=== PATIENT | female | born 1970 | race Caucasian/White ===

== ENCOUNTER 2017-05-06 17:05 | Emergency (ER) | payer OTHER ==
[2017-05-06 17:42] VITALS: BP 133/83
--- NOTE | 2017-05-06 17:52 | UC ---
Viola Izquierdo Emily, scribed for Wade Santizo MD on 05/06/17 at 1750 . Dental HPI - HPI Summary HPI Summary: This patient is a 46 year old F presenting to urgent care accompanied by family with a chief complaint of R lower tooth pain that began 1 week ago. Pt reports having the tooth pulled and being prescribed amoxicillin on 05/03/2017. The patient rates the pain 8/10 in severity. Symptoms aggravated by nothing. Symptoms alleviated by nothing. Patient reports swelling on lower jaw. - History of Current Complaint Stated Complaint: INFECTED TOOTH Time Seen by Provider: 05/06/17 17:32 Hx Obtained From: Patient Hx Last Menstrual Period: IUD Onset/Duration: Sudden Onset, Lasting Days, Still Present Severity: Severe Pain Intensity: 8 Pain Scale Used: 0-10 Numeric Aggravating Factor(s): Nothing Alleviating Factor(s): Nothing - Allergies/Home Medications Allergies/Adverse Reactions: Allergies Allergy/AdvReac Type Severity Reaction Status Date / Time No Known Allergies Allergy Verified 05/06/17 17:37 Home Medications: Home Medications Amoxicillin PO (*) [Amoxicillin 500 MG CAP*] 500 mg PO Q8H 05/06/17 [History Confirmed 05/06/17] Ibuprofen TAB* [Advil TAB*] 400 mg PO ONCE PRN 05/06/17 [History Confirmed 05/06] PMH/Surg Hx/FS Hx/Imm Hx Previously Healthy: No Cardiovascular History: Hypertension Respiratory History: Asthma Psychological History: Bipolar Disorder - Surgical History Surgical History: Yes Surgery Procedure, Year, and Place: 1978 & 2008 tonsillectomy x2. 1984 RT shoulder surgery. 03/2013 & 04/2014 LEFT CARPAL TUNNEL [facility]. 08/2014 LEFT SHOULDER [facility]. had small skin cancer removed. Ulnar nerve 12/2014 - Family History Known Family History: Positive: Other - DVT - Social History Occupation: Unemployed Lives: Alone Alcohol Use: None Alcohol Amount: NONE SINCE 2012 Substance Use Type: None Smoking Status (MU): Former Smoker Type: eCigarettes Amount Used/How Often: 10 cigarettes/day Have You Smoked in the Last Year: - e cigarettes When Did the Patient Quit Smoking/Using Tobacco: quit start of 2016 Household Exposure Type: Cigarettes Review of Systems ENT: Dental Pain Musculoskeletal: Edema All Other Systems Reviewed And Are Negative: Yes Physical Exam - Summary Physical Exam Summary: General: well-appearing, no pain distress Skin: warm, color reflects adequate perfusion, dry Head: normal Eyes: EOMI, EVI ENT: Open socket right, lower, rear jaw. Oral pharynx is open. Voice is normal. Neck: supple, nontender Respiratory: CTA, breath sounds present Cardiovascular: RRR Abdomen: soft, nontender Bowel: present Musculoskeletal: normal, strength/ROM intact, Swelling on R side of face Neurological: normal, sensory/motor intact, A&O x3 Psychological: affect/mood appropriate Triage Information Reviewed: Yes Vital Signs: Initial Vital Signs Temp 96.8 F 05/06/17 17:33 Pulse 82 05/06/17 17:33 Resp 16 05/06/17 17:33 BP 133/83 05/06/17 17:33 Pulse Ox 99 05/06/17 17:33 Vital Signs Reviewed: Yes Dental Complaint Course/Dx - Course Course Of Treatment: BP noted and advised to follow up with PCP. Medications reviewed. Allergies reviewed - Differential Dx/Diagnosis Provider Diagnoses: dental abscess. HTN Discharge - Discharge Plan Condition: Stable Disposition: HOME Prescriptions: Clindamycin Cap(NF) [Clindamycin Cap 300 mg Cap(NF)] 300 mg PO Q6H #40 cap Fluconazole 150 MG (NF) [Diflucan 150 mg (NF)] 150 mg PO ONCE #1 tab HYDROcodone/ACETAMIN 5-325 MG* [Burns 5-325 TAB*] 1 tab PO Q4H PRN #20 tab MDD 6 PRN Reason: Pain Patient Education Materials: Dental Abscess (ED) Referrals: Lorrie Knutson MD [Primary Care Provider] - Additional Instructions: FOLLOW UP WITH YOUR DENTIST. GET RECHECKED FOR ANY WORSENING OF YOUR CONDITION OR QUESTIONS OR CONCERNS. YOUR BLOOD PRESSURE WAS ELEVATED DURING TODAY'S VISIT; FOLLOW UP WITH YOUR PCP WITHIN ONE WEEK FOR FURTHER EVALUATION. The documentation as recorded by the Viola wilder Emily accurately reflects the service I personally performed and the decisions made by me, Wade Santizo MD.
== END 2017-05-06 18:23 | disposition home or self-care (01) ==
LOC: UCEAST 17:05
DX: K04.7 Periapical abscess without sinus (principal); R60.9 Edema, unspecified; I10 Essential (primary) hypertension; J45.909 Unspecified asthma, uncomplicated; F31.9 Bipolar disorder, unspecified; Z87.891 Personal history of nicotine dependence
CPT/HCPCS: 99212; G0463

== ENCOUNTER 2017-08-21 12:41 | Emergency (ER) | payer OTHER ==
--- NOTE | 2017-08-21 13:55 | RAD ---
INDICATION: Left lower extremity pain. COMPARISON: September 21, 2014. TECHNIQUE: Multiple real-time, color flow and Doppler tracings of the left lower extremity were obtained. FINDINGS: The common femoral, femoral, profunda femoral and popliteal veins all demonstrate normal compressibility, augmentation with compression and phasic response with respiration. The posterior tibial and peroneal veins demonstrate normal compressibility and augmentation with compression. IMPRESSION: NO EVIDENCE FOR DEEP VENOUS THROMBOSIS.
[2017-08-21 14:37] LABS: ABS Basophils 0 10^3/ul (0-0.2); ABS Eosinophils 0 10^3/ul (0-0.6); ABS Lymphocytes 1.5 10^3/ul (1.0-4.8); ABS Monocytes 0.4 10^3/ul (0-0.8); ABS Neutrophils 3.1 10^3/ul (1.5-7.7); ABS Nucleated RBC 0 10^3/ul; Eosinophil % 0.9 % (0-6); Hematocrit 38 % (35-47); Hemoglobin 13.1 g/dl (12.0-16.0); Mean Corpuscular HGB Conc 34 g/dl (31-36); Mean Corpuscular Hemoglobin 31 pg (27-31); Mean Corpuscular Volume 92 fL (80-97); Mean Platelet Volume 6.9 um3 (7.4-10.4); Nucleated Red Blood Cells % 0.1; Platelet Count 263 10^3/ul (150-450); Red Blood Count 4.18 10^6/ul (4.00-5.40); Red Cell Distribution Width 14 % (10.5-15)
[2017-08-21 14:54] LABS: EGFR Non-African American 89.3 (>60)
[2017-08-21 14:59] LABS: INR 0.9 (0.77-1.02)
--- NOTE | 2017-08-21 15:29 | ED ---
Lower Extremity - HPI Summary HPI Summary: 46-year-old female presents with left thigh/posterior knee pain for the past month. She denies any injury. She states that it radiates to the front of her knee. She says that she has had increased swelling to the area of pain. No numbness or tingling. She has chronic back pain and that is unchanged. The knee is not giving out. No weakness. She states that she has pain at rest and with ambulation of the same. She has not tried any heat or ice. She cannot take ibuprofen. She doesn't have a personal history of DVTs but her sister has had 4 dvts. She denies any chest pain or shortness breath. She denies any recent surgeries or travel. - History of Current Complaint Chief Complaint: EDExtremityLower Stated Complaint: LT LEG PAIN & SWELLING Time Seen by Provider: 08/21/17 14:40 Hx Last Menstrual Period: IUD Pain Intensity: 7 - Allergies/Home Medications Allergies/Adverse Reactions: Allergies Allergy/AdvReac Type Severity Reaction Status Date / Time No Known Allergies Allergy Verified 07/26/17 14:30 Home Medications: Home Medications Gabapentin CAP(*) [Neurontin 300 CAP(*)] 300 mg PO QPM 08/21/17 [History Confirmed 08/21/17] LevoCETirizine TAB (NF) [Xyzal TAB (NF)] 5 mg PO DAILY 08/21/17 [History Confirmed 08/21/17] Mometasone NASAL (NF) [Nasonex (NF)] 1 spray NASAL DAILY PRN 08/21/17 [History Confirmed 08/21/17] Mometasone/Formoter 200/5 MDI* [Dulera 200/5 MDI*] 2 puff INH BID 08/21/17 [ History Confirmed 08/21/17] Omeprazole CAP* [Prilosec CAP* 20 MG] 20 mg PO DAILY 08/21/17 [History Confirmed 08/21/17] PMH/Surg Hx/FS Hx/Imm Hx Endocrine/Hematology History: Denies: Hx Diabetes, Hx Thyroid Disease Cardiovascular History: Reports: Hx Hypertension Denies: Hx Pacemaker/ICD Respiratory History: Reports: Hx Asthma, Other Respiratory Problems/Disorders - CURRENTLY HAS UPPER RESPIRATORY INFECTION Denies: Hx Chronic Obstructive Pulmonary Disease (COPD) GI History: Reports: Hx Gastroesophageal Reflux Disease - ON DAILY MEDS Denies: Hx Ulcer History: Denies: Hx Dialysis, Hx Renal Disease Musculoskeletal History: Reports: Hx Arthritis - NECK, SHOULDERS, LOW BACK , ANKLES, HIPS, Hx Bursitis, Hx Tendonitis - Hx OF, Other Musculoskeletal History - carpal tunnel Sensory History: Reports: Hx Contacts or Glasses Denies: Hx Hearing Aid Opthamlomology History: Reports: Hx Contacts or Glasses Neurological History: Reports: Hx Headaches, Other Neuro Impairments/Disorders - FIBROMYALGIA Denies: Hx Migraine, Hx Nerve Disease, Hx Seizures Psychiatric History: Reports: Hx Anxiety - ON MEDS DAILY, Hx Depression, Hx Bipolar Disorder Denies: Hx Panic Disorder - Surgical History Surgery Procedure, Year, and Place: 1978 & 2008 tonsillectomy x2. 1983 RT shoulder surgery. 03/2013 & 04/2014 LEFT CARPAL TUNNEL [facility]. 08/2014 LEFT SHOULDER [facility]. had small skin cancer removed. Ulnar nerve 12/2014 Hx Anesthesia Reactions: No Infectious Disease History: No Infectious Disease History: Denies: Hx Hepatitis, Hx Human Immunodeficiency Virus (HIV), History Other Infectious Disease, Traveled Outside the in Last 30 Days - Family History Known Family History: Positive: Blood Disorder, Other - DVT - Social History Alcohol Use: None Alcohol Amount: NONE SINCE 2012 Substance Use Type: Reports: None Hx Tobacco Use: Yes Smoking Status (MU): Heavy Every Day Tobacco Smoker Type: eCigarettes Amount Used/How Often: 10 cigarettes/day Have You Smoked in the Last Year: - e cigarettes Review of Systems Negative: Fever Negative: Chest Pain Negative: Shortness Of Breath Positive: Myalgia - left knee pain All Other Systems Reviewed And Are Negative: Yes Physical Exam Triage Information Reviewed: Yes Vital Signs On Initial Exam: Initial Vitals Temp Pulse Resp BP Pulse Ox 97.3 F 82 17 114/73 97 08/21/17 12:56 08/21/17 12:56 08/21/17 12:56 08/21/17 12:56 08/21/17 12:56 Vital Signs Reviewed: Yes Appearance: Positive: Well-Appearing Skin: Positive: Warm, Dry Head/Face: Positive: Normal Head/Face Inspection Eyes: Positive: Normal, Conjunctiva Clear Respiratory/Lung Sounds: Positive: Clear to Auscultation, Breath Sounds Present Cardiovascular: Positive: Normal, RRR Musculoskeletal: Positive: Strength/ROM Intact - left leg, Edema Left - mild, Other - good pulses, capillary refill<2 secs, sensation grossly intact, nontender SI joint, neg ballotment, neg anterior drawer, neg patel, tenderness over area of edema behind left knee Neurological: Positive: Normal Psychiatric: Positive: Normal Diagnostics - Vital Signs Vital Signs Temp Pulse Resp BP Pulse Ox 08/21/17 12:56 97.3 F 82 17 114/73 97 - Laboratory Lab Results: Lab Results 08/21/17 08/21/17 08/21/17 Range/Units 14:29 14:29 14:29 WBC 5.0 (3.5-10.8) 10^3/ul RBC 4.18 (4.00-5.40) 10^6/ul Hgb 13.1 (12.0-16.0) g/dl Hct 38 (35-47) % MCV 92 (80-97) fL MCH 31 (27-31) pg MCHC 34 (31-36) g/dl RDW 14 (10.5-15) % Plt Count 263 (150-450) 10^3/ul MPV 6.9 L (7.4-10.4) um3 Neut % (Auto) 62.3 (38-83) % Lymph % (Auto) 29.0 (25-47) % Loup % (Auto) 7.5 H (0-7) % Eos % (Auto) 0.9 (0-6) % Baso % (Auto) 0.3 (0-2) % Absolute Neuts (auto) 3.1 (1.5-7.7) 10^3/ul Absolute Lymphs (auto) 1.5 (1.0-4.8) 10^3/ul Absolute Monos (auto) 0.4 (0-0.8) 10^3/ul Absolute Eos (auto) 0 (0-0.6) 10^3/ul Absolute Basos (auto) 0 (0-0.2) 10^3/ul Absolute Nucleated RBC 0 10^3/ul Nucleated RBC % 0.1 INR (Anticoag Therapy) 0.90 (0.77-1.02) Sodium 132 L (139-145) mmol/L Potassium 3.7 (3.5-5.0) mmol/L Chloride 95 L (101-111) mmol/L Carbon Dioxide 31 (22-32) mmol/L Anion Gap 6 (2-11) mmol/L BUN 5 L (6-24) mg/dL Creatinine 0.70 (0.51-0.95) mg/dL Est GFR ( Amer) 114.9 (>60) Est GFR (Non-Af Amer) 89.3 (>60) BUN/Creatinine Ratio 7.1 L (8-20) Glucose 107 H (70-100) mg/dL Calcium 9.0 (8.6-10.3) mg/dL Total Bilirubin 0.30 (0.2-1.0) mg/dL AST 16 (13-39) U/L ALT 11 (7-52) U/L Alkaline Phosphatase 48 (34-104) U/L Total Protein 5.8 L (6.4-8.9) g/dL Albumin 3.7 (3.2-5.2) g/dL Globulin 2.1 (2-4) g/dL Albumin/Globulin Ratio 1.8 (1-3) Result Diagrams: 08/21/17 14:29 08/21/17 14:29 Lab Statement: Any lab studies that have been ordered have been reviewed, and results considered in the medical decision making process. Lower Extremity Course/Dx - Course Course Of Treatment: 46-year-old female presents with left thigh/posterior knee pain for the past month. She denies any injury. She states that it radiates to the front of her knee. She says that she has had increased swelling to the area of pain. No numbness or tingling. She has chronic back pain and that is unchanged. The knee is not giving out. No weakness. She states that she has pain at rest and with ambulation of the same. She has not tried any heat or ice. She cannot take ibuprofen. She doesn't have a personal history of DVTs but her sister has had 4 dvts. She denies any chest pain or shortness breath. She denies any recent surgeries or travel. on exam has tenderness over area of edema behind left knee does not feel like popliteal cyst more like varicose vein. neurovascular intact. u/s normal. labs wnl. could be varicose vein causing pain vs muscular vs arthritis. will have follow up with primary or ortho. patient understand and agrees with plan. - Diagnoses Differential Diagnosis/HQI/PQRI: Positive: DVT, Phlebitis, Sprain, Strain Provider Diagnoses: Left knee pain Discharge - Sign-Out/Discharge Documenting (check all that apply): Discharge/Admit/Transfer - Discharge Plan Condition: Good Disposition: HOME Patient Education Materials: Leg Edema (ED) Referrals: Lorrie Knutson MD [Primary Care Provider] - Amaya Lange MD [Medical Doctor] - Additional Instructions: Try ice/heat Take Tylenol for pain Wear compression socks elevate Follow up with primary or ortho Return to ED if develop any new or worsening symptoms - Billing Disposition and Condition Condition: GOOD Disposition: Home
[2017-08-21 15:33] VITALS: BP 119/71
== END 2017-08-21 15:38 | disposition home or self-care (01) ==
LOC: ED 12:41
DX: M25.562 Pain in left knee (principal); M79.652 Pain in left thigh; G89.29 Other chronic pain; M47.816 Spondylosis without myelopathy or radiculopathy, lumbar region; M47.812 Spondylosis without myelopathy or radiculopathy, cervical region; F17.290 Nicotine dependence, other tobacco product, uncomplicated; K21.9 Gastro-esophageal reflux disease without esophagitis; F41.9 Anxiety disorder, unspecified; M19.012 Primary osteoarthritis, left shoulder; M19.011 Primary osteoarthritis, right shoulder; M19.072 Primary osteoarthritis, left ankle and foot; M19.071 Primary osteoarthritis, right ankle and foot; M16.0 Bilateral primary osteoarthritis of hip; Z83.2 Family history of diseases of the blood and blood-forming organs and certain disorders involving the immune mechanism; Z79.899 Other long term (current) drug therapy
CPT/HCPCS: 36415; 80053; 85025; 85610; 99282

== ENCOUNTER 2018-10-02 14:20 | Emergency (ER) | payer OTHER ==
[2018-10-02 15:01] VITALS: BP 125/81
--- NOTE | 2018-10-02 15:20 | UC ---
UC General HPI - HPI Summary HPI Summary: 48-year-old female comes in with a chief complaint of a rash on both legs. She noticed the several days ago it's getting worse. Denies any known toxic contact. No fevers or chills. Is feeling fatigued. She has bilateral edema in her legs. She's feeling bloated in her abdomen. She has asthma so she chronically has some shortness of breath but no increased shortness of breath from baseline. She's been on hydrochlorothiazide in the past with her primary care doctor but they stopped that because of her sodium levels. She is on lithium. Patient also reports she had a tick in her right upper thigh that she removed 2 days ago she is not sure how long the tick was in there is no rash at that site. No headache no bodyaches. - History of Current Complaint Chief Complaint: Claudy Stated Complaint: RASH Time Seen by Provider: 10/02/18 14:57 Hx Last Menstrual Period: IUD Pain Intensity: 0 - Allergy/Home Medications Allergies/Adverse Reactions: Allergies Allergy/AdvReac Type Severity Reaction Status Date / Time No Known Allergies Allergy Verified 10/02/18 14:53 Home Medications: Home Medications [place] Carbonate [[place] Carbonate 300 mg cap] 300 mg PO DAILY 10/02/18 [ History Confirmed 10/02/18] PMH/Surg Hx/FS Hx/Imm Hx Previously Healthy: Yes - Surgical History Surgical History: Yes Surgery Procedure, Year, and Place: 1978 & 2008 tonsillectomy x2. 1984 RT shoulder surgery WITH PIN. 03/2013 & 04/2014 LEFT CARPAL TUNNEL [facility]. 08/2014 LEFT SHOULDER [facility]. had small skin cancer removed. Ulnar nerve 12/2014 - Family History Known Family History: Positive: Blood Disorder, Other - DVT - Social History Alcohol Use: None Alcohol Amount: NONE SINCE 2012 Substance Use Type: None Smoking Status (MU): Former Smoker Type: eCigarettes Amount Used/How Often: 8/day Have You Smoked in the Last Year: - e cigarettes When Did the Patient Quit Smoking/Using Tobacco: quit start of 2016 Household Exposure Type: Cigarettes Review of Systems All Other Systems Reviewed And Are Negative: Yes Constitutional: Positive: Fatigue Skin: Positive: Other - SEE HPI Eyes: Positive: Negative ENT: Positive: Negative Respiratory: Positive: Negative Cardiovascular: Positive: Negative Gastrointestinal: Positive: Other - SEE HPI Genitourinary: Positive: Negative Motor: Positive: Negative Neurovascular: Positive: Negative Musculoskeletal: Positive: Edema Neurological: Positive: Negative Psychological: Positive: Negative Is Patient Immunocompromised?: No Physical Exam Triage Information Reviewed: Yes Appearance: Well-Appearing, No Pain Distress, Well-Nourished Vital Signs: Initial Vital Signs Temp 97.7 F 10/02/18 14:56 Pulse 81 10/02/18 14:56 Resp 18 10/02/18 14:56 BP 125/81 10/02/18 14:56 Pulse Ox 96 10/02/18 14:56 Vital Signs Reviewed: Yes Eye Exam: Normal Eyes: Positive: Conjunctiva Clear Neck: Positive: Supple Respiratory: Positive: No respiratory distress, Wheezing. Negative: Crackles Cardiovascular: Positive: RRR Abdomen Description: Positive: Nontender, Soft Musculoskeletal: Positive: Strength Intact, ROM Intact, No Edema - B/L PEDAL EDEMA Neurological: Positive: Alert, Muscle Tone Normal Psychological Exam: Normal Psychological: Positive: Normal Response To Family, Age Appropriate Behavior Skin: Positive: Other - There is bilateral pedal edema with some erythema also bilateral. The right upper thigh is location of the tick bite is a punctate erythematous spot without any further rash no bull's-eye rash. Course/Dx - Course Course Of Treatment: Due to the edema and fatigue we'll check a CBC CMP TSH and BNP. Always results are pending. Because of the tick bite I wrote prescriptions for doxycycline 200 mg single-dose. Patient follow-up with her primary care physician and get reevaluated sooner if worse or any questions or concerns. - Diagnoses Provider Diagnosis: Edema, Fatigue, Tick bite of right thigh Discharge - Sign-Out/Discharge Documenting (check all that apply): Patient Departure All imaging exams completed and their final reports reviewed: No Studies - Discharge Plan Condition: Stable Disposition: HOME Prescriptions: DOXYcycline CAP(*) [DOXYcycline 100MG CAP(*)] 200 mg PO ONCE #2 cap Patient Education Materials: Tick Bite (ED), Fatigue (ED), Edema (ED) Referrals: Lorrie Knutson MD [Primary Care Provider] - Additional Instructions: FOLLOW UP WITH YOUR DOCTOR. GET RECHECKED SOONER IF YOUR CONDITION WORSENS OR ANY QUESTIONS OR CONCERNS. - Billing Disposition and Condition Condition: STABLE Disposition: Home
[2018-10-03 11:01] LABS: ABS Eosinophils 0.1 10^3/ul (0-0.6); ABS Lymphocytes 1.5 10^3/ul (1.0-4.8); ABS Monocytes 0.5 10^3/ul (0-0.8); ABS Neutrophils 4.8 10^3/ul (1.5-7.7); Eosinophil % 1.6 %; Hematocrit 39 % (35-47); Hemoglobin 13.1 g/dL (12.0-16.0); Lymphocyte % 22.2 %; Mean Corpuscular HGB Conc 34 g/dL (31-36); Mean Corpuscular Hemoglobin 31 pg (27-31); Mean Corpuscular Volume 94 fL (80-97); Nucleated Red Blood Cells % 0.1; Platelet Count 267 10^3/uL (150-450); Red Blood Count 4.17 10^6 /uL (3.70-4.87); Red Cell Distribution Width 14 % (10-15); White Blood Count 6.9 10^3/uL (3.5-10.8)
[2018-10-03 11:29] LABS: TSH (Thyroid Stimulating Horm) 4.16 mcIU/mL (0.34-5.60)
[2018-10-03 11:53] LABS: Albumin 3.9 g/dL (3.2-5.2); BUN/Creatinine Ratio 4.1 (8-20); Calcium 9.2 mg/dL (8.6-10.3); EGFR African American 102.1 (>60); EGFR Non-African American 84.4 (>60); Potassium 4.1 mmol/L (3.5-5.0); Total Bilirubin 0.4 mg/dL (0.2-1.0); Total Protein 5.9 g/dL (6.4-8.9)
== END 2018-10-02 15:40 | disposition home or self-care (01) ==
LOC: UCEAST 14:20
DX: R60.9 Edema, unspecified (principal); R53.83 Other fatigue; S70.361A Insect bite (nonvenomous), right thigh, initial encounter; W57.XXXA Bitten or stung by nonvenomous insect and other nonvenomous arthropods, initial encounter; Y92.9 Unspecified place or not applicable; Z87.891 Personal history of nicotine dependence
CPT/HCPCS: 36415; 80053; 83880; 84443; 85025; 99212; G0463

== ENCOUNTER 2019-01-16 16:42 | Observation (INO) | payer OTHER ==
--- NOTE | 2019-01-16 17:27 | ED ---
Complex/Multi-Sys Presentation - HPI Summary HPI Summary: Pt is a 48 y/o F presenting to the ED with multiple system complaint. Pt's sister states she is on Fidelity, and she was increased to 900mg/day of Fidelity about 1 month ago. Pt's sister thinks it is just starting to "kick in" because the pt two days ago was becoming restless, and yesterday her arms and upper body were shaking. She reports polydipsia, frequency of urination, decreased appetite, rapid weight loss, unsteady gait, and seeing "[place] lights." - History Of Current Complaint Chief Complaint: EDGeneral Time Seen by Provider: 01/16/19 16:53 Hx Obtained From: Patient Onset/Duration: Gradual Onset, Lasting Days, Still Present Timing: Constant, Days Severity Currently: Mild Severity Initially: Moderate Location: Negative Associated Signs And Symptoms: Positive: Decreased Oral Intake, Other - see HPI - Allergies/Home Medications Allergies/Adverse Reactions: Allergies Allergy/AdvReac Type Severity Reaction Status Date / Time No Known Allergies Allergy Verified 01/09/19 11:12 Home Medications: Home Medications Cholecalciferol CAP/TAB(NF) [Vitamin D3 CAP/TAB (NF)] 5,000 unit PO DAILY [History Confirmed 01/16/19] Fluticasone NASAL SPRAY 50MCG* [Flonase NASAL SPRAY 50MCG*] 2 spray BOTH NARES DAILY 01/16/19 [History Confirmed 01/16/19] Fidelity Carbonate TAB* 300 mg PO QAM 01/16/19 [History Confirmed 01/16/19] [place]idelity Carbonate TAB* 600 mg PO BEDTIME 01/16/19 [History Confirmed 01/16/19] Tiotropium CAPSULE (NF) [Spiriva CAPSULE (NF)] 1 cap.inh INH DAILY 01/16/19 [ History Confirmed 01/16/19] celeCOXIB CAP* [CeleBREX CAP*] 200 mg PO BID 01/16/19 [History Confirmed ] traMADol TAB* [Ultram*] 50 mg PO .Q4-6H PRN 01/16/19 [History Confirmed 01/16/19 ] PMH/Surg Hx/FS Hx/Imm Hx Previously Healthy: Yes Endocrine/Hematology History: Denies: Hx Diabetes, Hx Thyroid Disease Cardiovascular History: Reports: Hx Hypertension Denies: Hx Pacemaker/ICD Respiratory History: Reports: Hx Asthma, Other Respiratory Problems/Disorders - CURRENTLY HAS UPPER RESPIRATORY INFECTION Denies: Hx Chronic Obstructive Pulmonary Disease (COPD) GI History: Reports: Hx Gastroesophageal Reflux Disease - ON DAILY MEDS Denies: Hx Ulcer History: Denies: Hx Dialysis, Hx Renal Disease Musculoskeletal History: Reports: Hx Arthritis - NECK, SHOULDERS, LOW BACK , ANKLES, HIPS, Hx Bursitis, Hx Fibromyalgia, Hx Tendonitis - Hx OF, Other Musculoskeletal History - carpal tunnel Sensory History: Reports: Hx Contacts or Glasses Denies: Hx Hearing Aid Opthamlomology History: Reports: Hx Contacts or Glasses Neurological History: Reports: Hx Headaches, Other Neuro Impairments/Disorders - FIBROMYALGIA Denies: Hx Migraine, Hx Nerve Disease, Hx Seizures Psychiatric History: Reports: Hx Anxiety - ON MEDS DAILY, Hx Depression, Hx Post Traumatic Stress Disorder, Hx Bipolar Disorder Denies: Hx Panic Disorder - Surgical History Surgery Procedure, Year, and Place: 1978 & 2008 tonsillectomy x2. 1984 RT shoulder surgery WITH PIN. 03/2013 & 04/2014 LEFT CARPAL TUNNEL [facility]. 08/2014 LEFT SHOULDER [facility]. had small skin cancer removed. Ulnar nerve 12/2014 Hx Anesthesia Reactions: No Infectious Disease History: No Infectious Disease History: Denies: Hx Hepatitis, Hx Human Immunodeficiency Virus (HIV), History Other Infectious Disease, Traveled Outside the [place] in Last 30 Days - Family History Known Family History: Positive: Blood Disorder, Other - DVT - Social History Alcohol Use: None Alcohol Amount: NONE SINCE 2012 Hx Substance Use: No Substance Use Type: Reports: None Hx Tobacco Use: Yes Smoking Status (MU): Former Smoker Type: eCigarettes Amount Used/How Often: vape Have You Smoked in the Last Year: - e cigarettes Review of Systems Positive: Other - decreased oral intake, weight loss, polydipsia, body shaking Positive: Other - seeing "[place] lights" Positive: frequency Positive: Other - unsteady gait All Other Systems Reviewed And Are Negative: Yes Physical Exam - Summary Physical Exam Summary: Constitutional: Well-developed, Well-nourished, Alert. (-) Distressed Skin: Warm, Dry HENT: Normocephalic; Atraumatic Eyes: Conjunctiva normal Neck: Musculoskeletal ROM normal neck. (-) JVD, (-) Stridor, (-) Nuchal rigidity Cardio: Rhythm regular, rate normal, Heart sounds normal; Intact distal pulses; Radial pulses are 2+ and symmetric. (-) Murmur Pulmonary/Chest wall: Effort normal. (-) Respiratory distress, (-) Wheezes, (-) Rales Abd: Soft, (-) tenderness, (-) Distension, (-) Guarding, (-) Rebound Musculoskeletal: (-) Edema Lymph: (-) Cervical adenopathy Neuro: AAOx2, CN 2-12 grossly intact, akathisia. No clonus. Psych: Mood and affect Normal Triage Information Reviewed: Yes Vital Signs On Initial Exam: Initial Vitals Temp Pulse Resp BP Pulse Ox 97.2 F 80 18 114/72 99 01/16/19 16:48 01/16/19 16:48 01/16/19 16:48 01/16/19 16:48 01/16/19 16:48 Vital Signs Reviewed: Yes Procedures - Sedation Patient Received Moderate/Deep Sedation with Procedure: No Diagnostics - Vital Signs Vital Signs Temp Pulse Resp BP Pulse Ox 01/16/19 16:48 97.2 F 80 18 114/72 99 - Laboratory Result Diagrams: 01/16/19 17:24 01/16/19 17:24 Lab Statement: Any lab studies that have been ordered have been reviewed, and results considered in the medical decision making process. - EKG 1713 Cardiac Rate: NL - 70bpm EKG Rhythm: Sinus Rhythm ST Segment: Normal Ectopy: None Summary of EKG Findings: An EKG at 1713 reveals NSR at 70bpm, nml axis, nml intervals. No STEMI. No acute changes. ED physician has reviewed and interpreted this EKG. Complex Multi-Symp Course/Dx Course Of Treatment: 48-year-old female with a history of bipolar disorder on lithium presents with restlessness, lightheadedness, increased urinary output concerning for lithium toxicity. lithium level 1.7, patient given IV fluids. 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 Will admit to the hospitalist. - Diagnoses Provider Diagnoses: Fidelity toxicity Discharge ED - Sign-Out/Discharge Documenting (check all that apply): Patient Departure - Discharge Plan Condition: Stable Disposition: ADMITTED TO [facility] - Billing Disposition and Condition Condition: STABLE Disposition: Admitted to [facility] - Attestation Statements Document Initiated by Scribe: Yes Documenting Scribe: Lucila Horowitz Provider For Whom [facility] is Documenting (Include Credential): Ken Pittman MD. Scribe Attestation: I, Lucila Horowitz, scribed for Ken Pittman MD. on 01/16/19 at 2213. Scribe Documentation Reviewed: Yes Provider Attestation: The documentation as recorded by the scribe, Lucila Horowitz accurately reflects the service I personally performed and the decisions made by me, Ken Pittman MD. Status of Scribe Document: Viewed Consult Consult: 1829 - I spoke with Dr. Kerr about the pt's present condition who accepts the pt to [facility].
[2019-01-16 17:35] LABS: ABS Eosinophils 0.1 10^3/ul (0-0.6); ABS Lymphocytes 1.5 10^3/ul (1.0-4.8); ABS Monocytes 0.5 10^3/ul (0-0.8); Eosinophil % 1.8 %; Hematocrit 36 % (35-47); Hemoglobin 12.5 g/dL (12.0-16.0); Lymphocyte % 21.1 %; Mean Corpuscular HGB Conc 35 g/dL (31-36); Mean Corpuscular Hemoglobin 33 pg (27-31); Mean Corpuscular Volume 94 fL (80-97); Mean Platelet Volume 7.5 fL (7.4-10.4); Platelet Count 257 10^3/uL (150-450); Red Blood Count 3.84 10^6 /uL (3.70-4.87); Red Cell Distribution Width 14 % (10-15); White Blood Count 7.1 10^3/uL (3.5-10.8)
[2019-01-16 17:48] LABS: ALT 15 U/L (7-52); AST 20 U/L (13-39); Albumin 3.7 g/dL (3.2-5.2); Albumin/Globulin Ratio 1.8 (1-3); Alkaline Phosphatase 77 U/L (34-104); Anion Gap 3 mmol/L (2-11); BUN/Creatinine Ratio 10.2 (8-20); Blood Urea Nitrogen 10 mg/dL (6-24); CO2 Carbon Dioxide 28 mmol/L (22-32); Calcium 9.9 mg/dL (8.6-10.3); Chloride 102 mmol/L (101-111); EGFR African American 72.7 (>60); EGFR Non-African American 60.1 (>60); Globulin 2.1 g/dL (2-4); Glucose 87 mg/dL (70-100); Potassium 4.1 mmol/L (3.5-5.0); Sodium 133 mmol/L (135-145); Total Protein 5.8 g/dL (6.4-8.9)
[2019-01-16 18:06] LABS: Acetaminophen < 15 mcg/mL; Salicylate < 2.50 mg/dL (<30)
--- OUTSIDE RECORDS SUMMARY | 2019-01-16 18:09 | XMS REPORT | Continuity of Care Document ---
:1970 External Reference #:[id number] Author Name Phil Frost M.D. 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 Onset: 01/01/2015 Exacerbation of mild persistent asthma Kely Medeiros MD Onset: 02/25/2016 Tobacco user Kely Medeiros MD Onset: 02/25/2016 Disturbance in sleep behavior Kely Medeiros MD Onset: 02/25/2016 Asthma without status asthmaticus Kely Medeiros MD Onset: 04/18/2016 Obesity Kely Medeiros MD Onset: 04/18/2016 Exacerbation of asthma Kely Medeiros MD Onset: 07/05/2016 Obstructive sleep apnea syndrome Kely Medeiros MD Onset: 07/05/2016 Knee joint effusion Tobi Light MD Onset: 10/17/2017 Current tear of medial cartilage AND/OR meniscus Tobi Light MD Onset: 09/2017 of knee Social History Type Date Description Comments Sex Unknown Tobacco Use Start: Unknown e-cigarettes about 6x per day End: Unknown Tobacco Use Start: Unknown Former Cigarette End: Unknown Smoker ETOH Use Denies alcohol use Tobacco Use Start: Unknown e-cigarettes Throughout the day End: Unknown Recreational Drug Use Denies Drug Use Tobacco Use Start: Unknown Patient is a former End: Unknown smoker Smoking Status Reviewed: 01/10/19 Patient is a former smoker Exercise Type/Frequency Exercises regularly PT 20 times per year 06/14/17 Document: 12/12/16 - Pulmonology Follow Up Allergies, Adverse Reactions, Alerts Active Allergies Reaction Severity Comments Date NKDA 10/27/2010 Mold 12/12/2016 Medications Active Medications SIG Qnty Indications Ordering Date Provider Spiriva Respimat 1 puff by mouth 4gm [facility] 11/16/2018 every day MD Waldemar 1.25mcg/Act Aerosol Caltrate 600+D take one 60tabs M53.3 Phil Frost, 02/20/2018 capsule/tablet by M.D. [id number] Tablets mouth twice daily Vitamin D3 Take One Capsule By 30caps Phil Frost, 12/25/2017 5000Unit Mouth Every Day M.D. Capsules D3 Maximum Strength take one 90caps M53.3 Phil Frost, 03/02/2017 capsule/tablet M.D. 5000Unit Capsules daily by mouth Albuterol Sulfate 1 unit nebl every 6 4units [facility] 07/20/2016 hours as needed MD Waldemar (2.5mg/3ML) 0.083% Nebulizer Nebulizer 1 unit nebulization 1units [facility] 07/18/2016 Kit/Tubing/Mouthpiece every 4- 6 hours as MD Waldemar needed Kit Baclofen Take One Tablet By 60tabs Phil Frost, 07/08/2016 10mg Tablets Mouth Twice A Day M.D. as Needed For Muscle Spasms - Avoid Driving Celebrex 1 capsule by mouth Phil Frost, 05/19/2016 100mg Capsules twice per day M.D. Lidoderm Apply 1 Patch To 30units M54.6 Phil Frost, 11/03/2015 5% Patches Affected Area For M.D. 12 Hours On And 12 Hours Off Levocetirizine Unknown Dihydrochloride 5mg Tablets Azelastine HCL (Nasal) Unknown 137mcg/Gilmer Solution [place] Carbonate p.o. tid Unknown 300mg Capsules Gabapentin Take One To Two Unknown 300mg Capsules Capsules By Mouth AT Bedtime as Needed Tramadol HCL 2 in am Douglas, 50mg Tablets VINCENT Rain Biotin Maximum take one Unknown Strength capsule/tablet [id number] Tablets daily by mouth Dulera 2 puff twice a day Unknown 200-5mcg/Act Aerosol Clonazepam 1/2-1 by mouth Unknown 1mg Tablets twice a day as needed Zolpidem Tartrate 1/2 to 1 tab by Unknown 10mg mouth every night Tablets at bedtime as needed Montelukast Sodium 1 by mouth every Unknown 10mg day Tablets Lisinopril 1 by mouth every Unknown 10mg Tablets day Divalproex Sodium ER 1 in am, 1 in pm Unknown 600mg Tablets ER 24HR Omeprazole 2x/day prn Unknown 40mg Capsules DR Duloxetine HCL Take one Unknown 60mg Caps capsule/tablet by Part mouth once daily Proair HFA as directed Unknown Medications Administered in Office Medication SIG Qnty Indications Ordering Provider Date Triamcinolone (Kenalog) Phil Frost M.D. 10/08/2018 Injection Triamcinolone (Kenalog) Phil Frost M.D. 05/21/2018 Injection Triamcinolone (Kenalog) Phil Frost M.D. 02/20/2018 Injection Triamcinolone (Kenalog) Phil Frost M.D. 11/20/2017 Injection Triamcinolone (Kenalog) Phil Frost M.D. 08/31/2017 Injection No Injection Tobi Light MD 08/24/2017 Injection Triamcinolone (Kenalog) Tobi Light MD 08/24/2017 Injection Triamcinolone (Kenalog) Phil Frost M.D. 05/31/2017 Injection Triamcinolone (Kenalog) Phil Frost M.D. 03/02/2017 Injection Triamcinolone (Kenalog) Phil Frost M.D. 11/04/2016 Injection Triamcinolone (Kenalog) Phil Frost M.D. 09/29/2016 Injection Triamcinolone (Kenalog) Phil Frost M.D. 09/12/2016 Injection Celestone 3 mg and 3mg Beata Webb-Young, 10/22/2014 Injection M.D. Celestone 3 mg and 3mg Beata Webb-Young, 12/31/2013 Injection Beth Celestone 3 mg and 3mg Beata Cisneros, 12/18/2013 Injection Beth Depomedrol 80MG Prince Burger M.D. 12/17/2013 Injection Depomedrol 80MG Dania Gonzalez M.D. 07/31/2013 Injection Immunizations CPT Code Status Date Vaccine Reaction Lot # [id number] Given 12/15/2016 Influenza Virus Vaccine, no immediate reaction [id number] Quadrivalent, Split, Preservative Free Vital Signs Date Vital Result Comment 01/10/2019 11:40am Height 62 inches 5'2" Weight 155.00 lb Heart Rate 72 /min BP Systolic Sitting 118 mmHg BP Diastolic Sitting 79 mmHg Respiratory Rate 17 /min Pain Level 8 O2 % BldC Oximetry 98 % BMI (Body Mass Index) 28.3 kg/m2 10/30/2018 11:30am Height 62 inches 5'2" Weight 174.00 lb Heart Rate 71 /min BP Systolic Sitting 110 mmHg BP Diastolic Sitting 60 mmHg O2 % BldC Oximetry 97 % BMI (Body Mass Index) 31.8 kg/m2 Results Test Acquired Facility Test Result H/L Range Note Date Laboratory 10/08/2018 [facility] Thyroperoxidase AB 0.27 IU/mL Normal <9 [address] [place], [place] [id number] [phone] T3 Free 3.30 pg/mL Normal 2.5-3.9 2 Urinalysis Profile 10/08/2018 [facility] Urine Color Yellow [address] [place] [address] [phone] Urine Appearance Cloudy Urine Specific Twisp 1.006 Low 1.010-1.030 Urine pH 7.0 Normal 5-9 Urine Urobilinogen Negative Negative Urine Ketones Negative Negative Urine Protein Negative Negative Urine Leukocytes 1+ Abnormal Negative Urine Blood Negative Negative Urine Nitrite Negative Negative Urine Bilirubin Negative Negative Urine Glucose Negative Negative Urine White Blood Cell Trace(0-5/hpf) Absent Urine Red Blood Cell Trace(0-2/hpf) Absent Urine Bacteria Absent Absent Urine Squamous Epithelial Cell Present Abnormal Absent Laboratory test 10/08/2018 [facility] Lyme Screen Negative Negative [address] W/ [place] [address] WB [phone] Urine Culture And 10/08/2018 [facility] Urine SEE RESULT [address] [address] [phone] Please check today 2 Please check today 3 Please check today 4 SEE RESULT BELOW Name: ROSE MIRELES : [address]: Phil Frost MD Acct: [id number] Unit: [id number] AGE: 48 Location: LAB Re10/08/18 SEX: F Status: REG REF SPEC: [id number] SHANNA: 10/08/18-[address]: Phil Frost MD REQ: [id number] RECD: 10/08/181203 STATUS: COMP _ SOURCE: URINE SPDESC: ORDERED: Urine Culture Procedure Result Reported Site Urine Culture Final 10/09/18- 1244 ML No growth of clinically significant organisms * ML - Main Lab . END OF REPORT DEPARTMENT OF PATHOLOGY, [address] [place] [address] Edwar Mulligan M.D. Director [facility] # [id number] Procedures Date Code Description Status 10/08/2018 24983 Admin Of Inj Completed Medical Devices Description No Information Available Encounters Type Date Location Provider Dx Diagnosis Office Visit 10/30/2018 Pulmonology And Kely Waldemar, J45.30 Mild persistent 11:30a [facility] asthma, [facility] uncomplicated G47.33 Obstructive sleep apnea (adult) (pediatric) F17.210 Nicotine dependence, cigarettes, uncomplicated Office Visit 10/08/2018 Rheumatology Phil M53.3 Sacrococcygeal 9:40a Services [facility] [place] Frost M.D. disorders, not elsewhere classified M51.36 Other intervertebral disc degeneration, lumbar region S00.06xD Insect bite (nonvenomous) of scalp, subsequent encounter R60.0 Localized edema M79.18 Myalgia, other site Assessments Date Code Description Provider 01/10/2019 M54.2 Cervicalgia Phil Frost M.D. 01/10/2019 M53.3 Sacrococcygeal disorders, not elsewhere Phil Frost M.D. classified 01/10/2019 M51.36 Other intervertebral disc degeneration, Phil Frost M.D. lumbar region 01/10/2019 M79.18 Myalgia, other site Phil Frost M.D. 10/30/2018 J45.30 Mild persistent asthma, uncomplicated Kely Waldemar, MD 10/30/2018 G47.33 Obstructive sleep apnea (adult) (pediatric) Kely Medeiros MD 10/30/2018 F17.210 Nicotine dependence, cigarettes, Kely Medeiros MD uncomplicated 10/08/2018 M53.3 Sacrococcygeal disorders, not elsewhere Phil Frost M.D. classified 10/08/2018 M51.36 Other intervertebral disc degeneration, Phil Frost M.D. lumbar region 10/08/2018 S00.06xD Insect bite (nonvenomous) of scalp, Phli Frost M.D. subsequent encounter 10/08/2018 R60.0 Localized edema Phil Frost M.D. 10/08/2018 M79.18 Myalgia, other site Phil Frost M.D. Plan of Treatment Future Appointment(s):04/15/2019 11:00 am - Phil Frost M.D. at [facility]05/02/2019 10:45 am - Kely Medeiros MD at [facility]01/10/2019 - Phil Frost M.D.M54.2 DxxboatrnypA71.3 Sacrococcygeal disorders, not elsewhere ddahizgjgkV25.36 Other intervertebral disc degeneration, lumbar ljhnkjK91.18 Myalgia, other siteFollow up:F/u in 3 months or sooner if needed Functional Status Description No Information Available Mental Status Description No Information Available Referrals Description No Information Available
[2019-01-16] MEDS ORDERED: NS 0.9% 1000 ML** 1,000 ML IV ONE (18:16)
[2019-01-16 18:21] LABS: TSH (Thyroid Stimulating Horm) 5.18 mcIU/mL (0.34-5.60)
[2019-01-16] MEDS ORDERED: Al Hydrox/Mg Hydrox/Simet LIQ* 30 ML UDC PO PRN (19:42)
[2019-01-16] MEDS ORDERED: Acetaminophen TAB* 325 MG PO PRN (19:42)
[2019-01-16] MEDS ORDERED: traMADol TAB* 50 MG PO PRN (19:47)
[2019-01-16] MEDS ORDERED: Albuterol HFA INHALER* 8 gm MDI INH PRN (19:47)
[2019-01-16] MEDS ORDERED: Enoxaparin(*) 40 MG/0.4 ML SYR SUBCUT SCH (21:00)
[2019-01-16] MEDS: D5W 1000 ML BAG* 1,000 ML IV SCH (22:01)
--- NOTE | 2019-01-16 22:47 | HP ---
CC: Dr. Knutson * HISTORY AND PHYSICAL: DATE OF ADMISSION: 01/16/19 PROVIDER: Tara Riggs NP. PRIMARY CARE PROVIDER: Dr. Knutson. ATTENDING PHYSICIAN WHILE IN THE HOSPITAL: Dr. Omid Hill * (dictated by Tara Riggs NP). CHIEF COMPLAINT: Restlessness, increased urination, decreased appetite. HISTORY OF PRESENT ILLNESS: Ms. Mireles is a 48-year-old female with past medical history significant for depression, fibromyalgia, bipolar, asthma, and hypertension who presented to the emergency room due to feeling tense, shaky, decreased appetite x3.5 months, increased restlessness, increased urination x2 months, worsening dry mouth, increased thirst, feeling sluggish, hand tremors and seeing stars and snow flakes in her peripheral vision. The patient does report that she recently had her lithium increased approximately 2 months ago. Since then, the symptoms have become progressively worse. Due to these findings , the patient presented to the emergency room for further evaluation. The patient does report that her mom recently on 01/08/19 and she has been having some mild increase in her depression since her mother's passing. While in the emergency room, the patient had routine lab work drawn. She was found to have a lithium level of 1.7. Salicylates and acetaminophen were within normal limits. Her sodium was mildly low at 133. Due to these findings , hospital medicine was asked to see and evaluate the patient for admission. PAST MEDICAL HISTORY: Significant for: 1. Depression. 2. Fibromyalgia. 3. Anxiety. 4. Bipolar. 5. Asthma. 6. Hypertension. PAST SURGICAL HISTORY: 1. Tonsillectomy. 2. Bursectomy. 3. Carpal tunnel surgery. 4. Ulnar nerve repair to left elbow. 5. Pinning to the right shoulder. HOME MEDICATIONS: 1. Albuterol HFA inhaler 2 puffs q.6 hours as needed for shortness of breath. 2. Duloxetine 60 mg p.o. b.i.d. 3. Depakote 500 mg p.o. b.i.d. 4. Mirena. 5. Lidocaine patch 1 patch transdermally daily p.r.n. 6. Lisinopril 10 mg p.o. daily. 7. Singulair 10 mg p.o. daily. 8. Ambien 10 mg at bedtime p.r.n. 9. Celebrex 200 mg p.o. b.i.d. 10. Tramadol 1 tablet every 4 to 6 hours as needed for pain. 11. Baclofen 10 mg p.o. t.i.d. p.r.n. 12. Xyzal 5 mg p.o. daily. 13. Nasonex 1 spray daily as needed. 14. Dulera 2 puffs inhaled twice daily. 15. Omeprazole 20 mg p.o. daily. 16. Ridgeside 300 mg in the a.m., 600 mg in the p.m. 17. Gabapentin 300 mg at bedtime - the patient reports she currently is not taking this medication. 18. Spiriva inhaler 1 cap inhaled daily. ALLERGIES: No known drug allergies. FAMILY HISTORY: Significant for coronary artery disease, diabetes, and cancer. SOCIAL HISTORY: The patient is a former smoker. She reports she quit smoking 2 years ago. Prior to that, she smoked for 20 years a pack a day. She denies any alcohol use. She is a former drinker. She does report she quit drinking approximately 5 years ago. No illicit drug use. She does not work. She is single. Surrogate decision maker in the event she is unable to make her own decisions is her sister, Desire. She is a full code. REVIEW OF SYSTEMS: The patient denies any fever. She does report decreased appetite and weight loss. She denies any chest pain, edema, cough, hemoptysis, or shortness of breath. She does report occasional nausea. No vomiting, diarrhea, or abdominal pain. No gross hematuria or dysuria. She does report urinary frequency, urgency, and urination of large amounts. Denies any focal weakness or sensory loss. She does report x1 week seeing stars and snow flakes in her peripheral vision on and off. Denies any dysphagia, arthralgias, myalgias, rashes, lesions, or open sores. She denies any anxiety. She does report increase in depression. PHYSICAL EXAMINATION GENERAL: At this time, Ms. Mireles is a 48-year-old female. She is resting comfortably on the stretcher in the emergency room. She is restless. VITAL SIGNS: Blood pressure 110/68, heart rate 68, respirations are 12, O2 saturation is 100%, temperature is 97.2. HEENT: Head is atraumatic, normocephalic. Eyes: EOMs are intact. She does have nystagmus. Mucous membranes are dry. NECK: Supple. LUNGS: Clear to auscultation bilaterally. No wheezes, rales, or rhonchi. CARDIAC: S1, S2. Regular rate and rhythm. No murmurs, rubs, or gallops. ABDOMEN: Soft and nontender. Bowel sounds are present x4. MUSCULOSKELETAL: She is able to move all 4 extremities. There is no clubbing or cyanosis. She does have a fine tremor noted to bilateral upper extremities and turkey-type upper extremity movements. NEUROLOGIC: She is awake, alert, and oriented x3. Speech is clear. Thought process is intact. There are no gross focal deficits. SKIN: Intact. Her bilateral palms with dry skin. DIAGNOSTIC STUDIES/LAB DATA: WBCs are 7.1, RBCs are 3.84, hemoglobin 12.5, hematocrit was 36, platelet count was 257. Sodium 133, potassium 4.1, chloride 102, carbon dioxide is 28, anion gap was 3, BUN was 10, creatinine 0.98, glucose 87, calcium 9.9, magnesium 2.0. ASTs were 20, ALTs were 15, alkaline phosphatase was 77. TSH was 5.18. Salicylates were less than 2.50. Acetaminophen less than 15. Ridgeside was 1.7. She had an electrocardiogram which showed sinus rhythm at a rate of 70, QT was 422, QTc was 456. There are no ST- or T-wave changes. ASSESSMENT AND PLAN: Ms. Mireles is a 48-year-old female with past medical history significant for depression, fibromyalgia, anxiety, bipolar, asthma, and hypertension who presented to the emergency room with complaints of increased shakiness, feeling tense, restless, increased urination, dry mouth, feeling sluggish with tremors who was found to have an elevated lithium level. She will be admitted for: 1. Ridgeside toxicity. The patient does have a lithium level of 1.7. I will monitor her serum sodium level every 12 hours for the next 24 to 48 hours. Will repeat Ridgeside level in the AM. According to UpToDate, should use caution with IV fluid replacement as lithium toxicity can cause hypernatremia. The patient did receive 1 L of normal saline in the emergency room. She is mildly hyponatremic with a sodium of 133. I will repeat BMP at midnight. I will place her on D5W at 75 cc per hour. We will monitor her electrolytes every 12 hours. I will repeat a CBC and BMP in the a.m. According to MalenaToDate, the use of NSAIDs and angiotensin converting enzyme inhibitors can also increase lithium levels. I will hold her lisinopril and Celebrex at this time. I am also going to hold her lithium and will repeat a lithium level in the a.m. We will monitor the patient's strict Is and Os as the patient has reported polyuria , which can be associated with the use of lithium. We will monitor for nephrogenic diabetes insipidus. 2. Hyponatremia. The patient does have a sodium level of 133. I suspect this could be related to her excessive thirst and increased water intake. We will monitor her sodium. I will repeat a BMP at midnight and repeat a BMP in the a.m. She did receive 1 liter on normal saline in the emergency room, will change IVF to D5W as lithium toxicity can cause hypernatremia with the use of normal saline. 3. Asthma. The patient should continue on Spiriva, Dulera, and albuterol inhalers as needed for shortness of breath. 4. Hypertension. I am going to hold her lisinopril as this can cause increase in lithium toxicity. 5. Chronic pain. I am going to hold her Celebrex as Celebrex can cause an increase in lithium toxicity. I will continue tramadol as needed. 6. FEN. She can have a regular diet. 7. Code status. She is a full code. 8. DVT prophylaxis. I will place her on Lovenox subcu. I have discussed this with my attending, Dr. Omid Hill; he is in agreement with my plan. TARA RIGGS, YARD WAREHOUSE WORKER [id number]/[facility] #: [id number] ERICK
[2019-01-16] MEDS ORDERED: Zolpidem TAB* 10 MG PO ONE (23:15)
[2019-01-16 23:54] LABS: BUN/Creatinine Ratio 9.4 (8-20); Calcium 9.1 mg/dL (8.6-10.3); EGFR African American 85.7 (>60); EGFR Non-African American 70.8 (>60); Potassium 3.7 mmol/L (3.5-5.0)
[2019-01-16] MEDS: Mometasone/Formoter 200/5 MDI INH SCH (23:59)
[2019-01-17 05:12] LABS: ABS Eosinophils 0.2 10^3/ul (0-0.6); ABS Lymphocytes 1.6 10^3/ul (1.0-4.8); ABS Monocytes 0.5 10^3/ul (0-0.8); ABS Neutrophils 3.4 10^3/ul (1.5-7.7); Hematocrit 35 % (35-47); Hemoglobin 11.6 g/dL (12.0-16.0); Lymphocyte % 28.3 %; Mean Corpuscular HGB Conc 33 g/dL (31-36); Mean Corpuscular Hemoglobin 32 pg (27-31); Mean Corpuscular Volume 95 fL (80-97); Mean Platelet Volume 7.4 fL (7.4-10.4); Nucleated Red Blood Cells % 0.1; Platelet Count 242 10^3/uL (150-450); Red Blood Count 3.65 10^6 /uL (3.70-4.87); Red Cell Distribution Width 14 % (10-15); White Blood Count 5.7 10^3/uL (3.5-10.8)
[2019-01-17 05:31] LABS: BUN/Creatinine Ratio 9.2 (8-20); EGFR African American 97.5 (>60); EGFR Non-African American 80.6 (>60); Lithium 1.34 mmol/L (0.6-1.2)
[2019-01-17] MEDS: Mometasone/Formoter 200/5 MDI INH SCH (08:05)
[2019-01-17] MEDS: Pantoprazole TAB * 40 MG TAB PO SCH ×2 (08:07→08:11)
[2019-01-17] MEDS: D5W 1000 ML BAG* 1,000 ML IV SCH (08:08)
[2019-01-17] MEDS ORDERED: Fluticasone NASAL SPRAY 50MCG* 16 gm SPRAY BTL BOTH NARES SCH (09:00)
[2019-01-17] MEDS ORDERED: DULoxetine DR CAP* 60 MG CAP.DR PO SCH (09:00)
[2019-01-17] MEDS ORDERED: Cholecalciferol TAB* 1000 UNITS PO SCH (09:00)
[2019-01-17] MEDS ORDERED: Montelukast Sodium TAB* 10 MG PO SCH (09:00)
[2019-01-17 11:29] VITALS: BP 111/60
--- NOTE | 2019-01-17 12:00 | CONS ---
PSYCHIATRIC CONSULTATION DATE OF CONSULTATION: 01/17/2019. DATE OF ADMISSION: 01/16/2019. ATTENDING CLINICIAN: Nurse practitioner Lianna Campuzano. CONSULTING PHYSICIAN: Dr. Kostas Jameson. REASON FOR CONSULTATION: [place] toxicity. SUBJECTIVE HISTORY: The patient is a 48-year-old, single, white female with a history of bipolar disorder who arrived at the emergency room due to increased restlessness, polyuria, polydipsia, hypophagia, tremulousness, and fatigue for several weeks. The patient reported that her [place] was recently increased and it was discovered upon admission that her [place] level was grossly toxic at 1.7. It is notable that she is also on two other medications that are metabolized in the kidney, including Celebrex and Lisinopril. When I meet with the patient, she denies being recently dehydrated. If anything, she has been drinking much more. She denies episodes of having prolonged exposure to the sun , taking excessive NSAIDs or mistakenly taking more [place] than she was prescribed. She is accompanied by her ex-fiance and her sister in the room who substantiate this. The patient denies suicidal or homicidal ideations and states that her mood has been mostly euthymic. She does note a recent stressor in that her mother on January 04 of this year after a prolonged stay in a fpc. Her and her sister are grieving appropriately. For collateral information, I reached out to outpatient psychiatric nurse practitioner, Judie Frausto at the [facility]. Ms. Frausto reports that Rose presented to her clinic approximately five weeks ago with increased irritability and hypomanic presentation with slightly pressured speech. At that time, her [place] dose was only 600 mg nightly and her level was therapeutic at 0.72. They mutually determined to increase her [place] by adding a 300 mg a.m. dose to the 600 mg nightly dose. They met again for follow -up two weeks ago and the patient appeared much more euthymic. She has denied suicidal ideations throughout their work together. At this time, it is agreeable by everyone that [place] should be discontinued and that the patient will require close monitoring in the outpatient setting. PAST PSYCHIATRIC HISTORY: The patient denies any previous psychiatric admissions. She was diagnosed with bipolar approximately three years ago by an elderly psychiatrist names Dr. Abraham in [place], [place] who has since retired. For the past six months, she has been attending clinic at [facility] where she sees a therapist named Rigoberto and psychiatric nurse practitioner Judie Frausto. Her psychiatric medications include Cymbalta 60 mg twice daily, Depakote 500 mg twice daily, Ambien 10 mg at night, [place] 300 mg in the morning and 600 mg in the evening, Gabapentin 300 mg at night. SUBSTANCE ABUSE HISTORY: The patient is a former smoker, having quit tobacco two years ago. She denies recent alcohol consumption, but states that she used to overindulge in alcohol until quitting five years ago. She denies use of illicit substances. PAST MEDICAL HISTORY: Significant for fibromyalgia, asthma, hypertension, tonsillectomy, bursectomy, carpal tunnel surgery, ulnar nerve repair to the left elbow, history of pinning of right shoulder. HOME MEDICATIONS: Albuterol, Duloxetine, Depakote, Lidocaine patch, Lisinopril , Singulair, Ambien, Celebrex, Tramadol, Baclofen, Xyzal, Nasonex, Dulera, Omeprazole, [place], Gabapentin, Spiriva. ALLERGIES: No known drug allergies. SOCIAL HISTORY: The patient was born and raised here in the [facility]. She lives with her sister who is her only sibling. Her mother is recently , but her father is still alive. The patient has never been and has no children. She is currently single, does not work and receives some support from her family financially. MENTAL STATUS EXAM: The patient is a middle-aged, white female who is attractive with reddish-blonde hair. She is clean, well-groomed, dressed in a patient gown, sitting upright in bed. She is calm, cooperative, makes good eye contact and is easy to establish a rapport with. Speech has a normal rate, tone , and volume. Mood appears to be euthymic with a full affect. Thought process is linear and goal- directed. Thought content is significant for her concern over [place] toxicity. She is denying suicidal or homicidal ideation. She denies auditory or visual hallucinations. Insight and judgment are fair given her willingness to follow-up with the [facility]. Cognitively, she is awake and alert with what would appear to be an average intellect. DIAGNOSES: AXIS I: Bipolar disorder, currently euthymic; history of alcohol use disorder, in long-term remission. AXIS II: Deferred. IMPRESSION: The patient is a 48-year-old, single, white female with a history of bipolar disorder, admitted with several signs and symptoms of [place] toxicity, subsequently discovered to have a [place] level of 1.7. The patient' s [place] toxicity is likely secondary to her recent increase in dose coupled with the fact that she is on two other renal medications, including Celebrex and Lisinopril. At this time, we recommend that she continue to have her [place] held until she can be seen in the outpatient clinic next week. I have had her appointment moved up so that she will follow-up more closely. That appointment is established for January 23 at 11:10 a.m. with psychiatric nurse practitioner Judie Frausto. RECOMMENDATION TO PRIMARY TEAM: Psychiatry recommends temporary discontinuation of [place]. The patient does not need Behavioral Science Unit care and can be managed successfully in the outpatient setting. Her appointment is for 01/23/2019 at 11:10 a.m. at [facility]. Psychiatry is signing off, but can be reconsulted in the event of any significant changes in the patient's presentation. Thank you for the consult. [id number]/[facility] #: [id number] ERICK
--- NOTE | 2019-01-17 20:48 | DS ---
CC: Dr. Lorrie Knutson; Keyanna Frausto NP * DISCHARGE SUMMARY: DATE OF ADMISSION: 01/16/19 DATE OF DISCHARGE: 01/17/19 PRIMARY CARE PROVIDER: Dr. Lorrie Knutson. OUTPATIENT PSYCHIATRIST: Keyanna Frausto NP ATTENDING PHYSICIAN: Titus Oliva MD * (DICTATED BY LETA BANDA NP) PRIMARY DIAGNOSIS: 1. [place] toxicity. SECONDARY DIAGNOSES: 1. Bipolar disorder. 2. Depression. 3. Anxiety. 4. Asthma. 5. Hypertension. 6. Fibromyalgia. STUDIES WHILE IN THE HOSPITAL: 1. EKG on 01/16/19 showed normal sinus rhythm with a rate of 70, QTc 456, no ischemic changes. Next EKG on 01/17/19 shows normal sinus rhythm with a rate of 69, QTc 447, no ischemic changes. HISTORY OF PRESENT ILLNESS AND HOSPITAL COURSE: Ms. Mireles is a 48-year-old female with past medical history of bipolar disorder, depression, anxiety, fibromyalgia, asthma, and hypertension who presented to the emergency room on with complaints of restlessness, tremors, and decreased appetite. Please see the history and physical by Tara Riggs NP for a complete summary of the events leading up to this hospitalization. In short, the patient had been feeling increasingly tense, tremulous, and restless over the last 3 to 4 months. She additionally noted some increasing thirst and poor appetite. The patient did report that her psychiatrist had increased her lithium dosing approximately 2 months ago and she felt as though her symptoms were getting worse since that time. In the emergency room, the patient was noted to have a critically high lithium level of 1.7. For that reason, she was admitted by the hospitalist service. The patient was started on IV fluids. Lisinopril and Celebrex were held. She had an uneventful night and is feeling much better this morning. Tremors and overall symptoms are significantly improved per the patient's report. The patient's sister also reports that symptoms have improved significantly. [place] level this morning was noted to be 1.34. Repeat lithium level midday was noted to be 1.1. The patient was seen in consultation by Dr. Jameson from Psychiatry who did suspect that the lithium toxicity was secondary to recent increase in dose coupled with the patient being on 2 other medications which can effect renal function, Celebrex and lisinopril. He recommended holding the lithium altogether at this point and having the patient follow up next week with her outpatient psychiatrist to determine further medication adjustments at that time. He did clear the patient from a psychiatric standpoint. Again, the patient has very few complaints this morning. She has a mild tremor, but overall is feeling well. PHYSICAL EXAMINATION: On exam, she is alert and oriented x4. She has no focal neurological deficits. Her heart has a regular rate and rhythm without murmurs , rubs, or gallops. Her lungs are clear to auscultation without rhonchi, wheezes, or rubs. There is no edema. Physical exam is otherwise benign. Ms. Mireles is stable for discharge today. Most recent vital signs are as follows; temp 97.9, heart rate 70, respiratory rate 16, oxygen saturation 94% on room air, blood pressure 111/60. DISCHARGE MEDICATIONS: Continued medications: 1. Albuterol MDI 2 puffs q.6 hours p.r.n. shortness of breath, wheezing. 2. Baclofen 10 mg p.o. b.i.d. p.r.n. muscle spasms. 3. Celebrex 200 mg p.o. b.i.d. 4. Cholecalciferol 5000 units p.o. daily. 5. Duloxetine 60 mg p.o. daily. 6. Fluticasone 2 sprays both nares daily. 7. Gabapentin 300 to 600 mg p.o. at bedtime. 8. Levocetirizine 5 mg p.o. daily. 9. Lisinopril 10 mg p.o. daily. 10. Mometasone 1 spray both nares daily p.r.n. allergy symptoms. 11. Dulera 200/5 two puffs b.i.d. 12. Singulair 10 mg p.o. daily. 13. Omeprazole 20 mg p.o. daily. 14. Spiriva 1 cap inhalation daily. 15. Tramadol 50 mg p.o. q.4 to 6 hours p.r.n. pain. 16. Triamcinolone 0.1% 1 application topically b.i.d. p.r.n. itching. 17. Ambien 10 mg p.o. at bedtime p.r.n. insomnia. Discontinued medications: 1. [place]. DISCHARGE PLAN: Ms. Mireles will be discharged home with her sister. Activity will be as tolerated. Diet will be regular as tolerated. The patient can resume all her usual medications with the exception of lithium which she should stop taking altogether at this point. She will need to follow up with her outpatient psychiatrist next week to determine if she can resume this medication or if she should be placed on any other medications. The patient does have an appointment scheduled for 01/23/19 at 11:10 a.m. with Judie Frausto NP. She should also follow up with her primary care provider in the next 4 to 7 days. She should return to the emergency room or nearest hospital for any worsening of symptoms, shortness of breath, lightheadedness, dizziness, chest discomfort, high fevers, chills, night sweats, loss of consciousness, or any other worrisome signs or symptoms. DISCHARGE CONDITION: Stable. DISCHARGE DISPOSITION: Home. This is a summarized report of a complex medical history and hospital stay. For further details, please see the entire medical record. TIME SPENT: Approximately 45 minutes were spent on this discharge. LETA BANDA NP [id number]/[facility] #: [id number] ERICK
== END 2019-01-17 13:21 | disposition home or self-care (01) ==
LOC: ED 16:42 → MEDTELE 19:42
PROVIDERS: ADMIT Internal Medicine; ATTEND Internal Medicine
DX: T56.891A Toxic effect of other metals, accidental (unintentional), initial encounter (principal); F31.9 Bipolar disorder, unspecified; I10 Essential (primary) hypertension; F41.9 Anxiety disorder, unspecified; J45.909 Unspecified asthma, uncomplicated; M79.7 Fibromyalgia; R51 Headache; Z79.899 Other long term (current) drug therapy; Z87.891 Personal history of nicotine dependence; Y92.9 Unspecified place or not applicable; K21.9 Gastro-esophageal reflux disease without esophagitis; F43.10 Post-traumatic stress disorder, unspecified
CPT/HCPCS: 36415; 80048; 80053; 80164; 80178; 80329; 83735; 84439; 84443; 85025; 93005; 94640; 96360; 96361; 96372; 99284; A9270-GY; G0378; G0480; J1650